=== PATIENT | male | born 1945 | race Caucasian/White ===

== ENCOUNTER → 2019-03-24 13:03 | Outpatient (CLI) | payer MEDICARE, OTHER ==
[2010-11-08 07:19] VITALS: BMI 26.9
--- NOTE | 2019-03-29 10:06 | EC ---
PATIENT:NA BENNETT DATE OF SERVICE: 03/24/19 SEX: M MEDICAL RECORD: [id number] DATE OF : 49 LOCATION:D[facility] AGE OF PATIENT: 73 ADMISSION DATE: 03/24/19 REFERRING PHYSICIAN: INTERPRETING PHYSICIAN: TANGELA DEL ANGEL MD ECHOCARDIOGRAM REPORT ECHO CHARGES 4 ECHO COMPLETE Date: 03/24/19 CLINICAL DIAGNOSIS: MR H/O CAD/HTN/A-FIB ECHOCARDIOGRAPHIC MEASUREMENTS (adult normal given) AC root (d.<3.7cm) 3.8 cm LV Septum d (<1.2 cm> 0.8 cm Valve Excursion 2.0 cm LV Septum (systole) 2.0 cm Left Atria (s.<4.0cm> 7.7 cm LVPW d(<1.2cm) 1.3 cm RV (d.<2.3cm) 2.8 cm LVPW (sytole) 2.0 cm LV diastole(<5.6CM) 6.6 cm MV E-F(>70mm/sec) cm LV systole 3.7 cm LVOT Diameter 2.2 cm MV exc.(>10mm) cm Est.ejection fraction (50-75%) % DOPPLER: LVIT cm/sec A cm/sec E 126 cm/sec LA cm/sec RVSP 55.0 mmHg LVOT 98.0 cm/sec AOP1/2T m/s Asc. Ao 119 cm/sec RVOT 49.0 cm/sec RA cm/sec PA 58.0 cm/sec AV Gradient Peak 5.7 mmHg AV Mean 2.9 mmHg AV Area 2.9 cm MV Gradient Peak 11.0 mmHg MV Mean 3.9 mmHg MV Area cm COMMENTS: OP - HC Shoe Repairer: 1 JONO ZOFIA Construction Producer: 3 Dr. Mcdonald TAPE# PACS Pericardial Effusion N DATE OF SERVICE: Adequate 2D, color flow, spectral Doppler, and M-Mode. No LVH. LV internal dimensions are normal. Wall motion is normal. EF is greater than or equal to 55%. Aortic valve sclerosis without evidence of stenosis on Doppler interrogation. Left atrium dilated at 7.7 cm. Mitral valve shows no prolapse. Mild MR. Right-sided chambers grossly normal. Mild TR. TRANSINT:[id number] Voice Confirmation ID: [id number] DOCUMENT ID: [id number] ECHOCARDIOGRAM REPORT [id number] NA BENNETT,TANGELA Garcia MD at 1006 CC: [id number] DICTATION DATE: 03/24/19 161 METALLURGICAL SPECIALIST: 03/25/19 0208 DEP CLI 03/24/19 [place] [id number] [place] [id number]
== END | disposition home or self-care (01) ==
LOC: D.HCCARDIO 13:03
PROVIDERS: ATTEND Internal Medicine Interventional Cardiology
DX: I34.0 Nonrheumatic mitral (valve) insufficiency (principal)

== ENCOUNTER → 2021-02-14 08:39 | Outpatient (CLI) | payer MEDICARE, OTHER ==
[2010-11-08 07:19] VITALS: BMI 26.9
== END | disposition home or self-care (01) ==
LOC: D.HCCECHO 08:39
PROVIDERS: ATTEND Internal Medicine Cardiovascular Disease
DX: I25.10 Atherosclerotic heart disease of native coronary artery without angina pectoris (principal)